=== PATIENT | female | born 1940 | race Caucasian/White ===

== ENCOUNTER → 2016-08-27 | Outpatient (CLI) | payer OTHER ==
--- NOTE | 2016-08-27 08:31 | DX ---
PA and Lateral Chest Clinical Indications: Shortness of breath. R60.0, R09.02. Findings: The lungs are clear, and no masses are found. The heart and pulmonary vessels are normal. There are no pleural effusions and no pneumothorax. Midthoracic vertebral osteophytes are large. No compression fracture. Impression: Normal.
== END ==
LOC: BMCIMAGING 08:05
PROVIDERS: ATTEND Family Medicine Geriatric Medicine
DX: R06.02 Shortness of breath (principal)

== ENCOUNTER → 2016-09-09 | Outpatient (CLI) | payer OTHER ==
--- NOTE | 2016-09-09 08:47 | MR ---
MRI of the Lumbar Spine (Without Contrast) at 0720 hour Clinical Indications: Low back pain (M 54.5). The patient also reports leg weakness. Technique: Sagittal and axial T1 and T2 MR sequences of the lumbar spine without contrast. Axial i maging from lower thoracic spine to the upper sacrum. Findings: Lumbar vertebral bodies are of normal height without compression fractures. Conus medulla ris is relatively low in position and ends at L4. There is subtle lipomatous change of the filum term inale that measures about 2 mm in thickness. There is also mild cystic dilatation of the caudal aspec t of the spinal canal at the level of the distal sacrum on the most inferior margin of the sagittal i mages obtained that is incompletely evaluated. T12-L1: No disk herniation or stenosis. L1-L2: No disk herniation or stenosis. L2-L3: Moderate to marked degenerative disk disease with loss of disk height and Modic type II fatty endplate changes. There is moderate diffuse disk bulge with focal left paracentral disk protrusion th at along with mild ligamentum flavum hypertrophy contributes to moderate to severe left lateral reces s stenosis and mild spinal stenosis. There is bilateral neuroforaminal stenosis mild on the right and moderate on the left secondary to disk bulge and small osteophyte. L3-L4: Moderate to marked degenerative disk disease with desiccation and loss of disk height. There i s Modic type II fatty endplate changes. There is mild diffuse disk bulge with osteophyte with very mi ld compression upon the anterior dural sac without significant spinal stenosis. There is mild to mode rate bilateral neuroforaminal stenosis secondary to posterior lateral osteophyte and facet hypertroph y. L4-L5: Mild desiccation without loss of disk height. There is a posterior central to left paracentral disk protrusion causing mild to moderate compression upon the dural sac with borderline spinal steno sis. There is mild bilateral neuroforaminal stenosis secondary to disk bulge and mild facet hypertrop hy. L5-S1: No disk herniation or stenosis. Impression: 1. The conus is at the L4 level with thickened filum terminale compatible with tethered spinal cord. There is incomplete evaluation of the caudal aspect of the dural sac at the sacrococcygeal junction w ith cystic component on the inferior margin of sagittal images obtained. If indicated, consider addit ional MRI of the sacrum and coccyx for more complete characterization.. 2. Degenerative disk disease most prominent at L2-L3 and L3-L4 with associated left paracentral disk protrusion at the L2-L3 segment as detailed above.
== END ==
LOC: FIMAGING 07:01
PROVIDERS: ATTEND Physical Medicine & Rehabilitation
DX: M51.36 Other intervertebral disc degeneration, lumbar region (principal); M51.26 Other intervertebral disc displacement, lumbar region; G95.89 Other specified diseases of spinal cord

== ENCOUNTER → 2016-10-11 | Outpatient (CLI) | payer OTHER | LOC: FIMAGING 06:50 | PROVIDERS: ATTEND Physical Medicine & Rehabilitation | DX: Q06.8 Other specified congenital malformations of spinal cord (principal); G58.9 Mononeuropathy, unspecified ==

== ENCOUNTER → 2016-12-12 | Outpatient (CLI) | payer OTHER | LOC: FIMAGING 14:09 | PROVIDERS: ATTEND Neurological Surgery | DX: M43.24 Fusion of spine, thoracic region (principal); M25.78 Osteophyte, vertebrae ==

== ENCOUNTER → 2016-12-13 | Outpatient (CLI) | payer OTHER | LOC: FIMAGING 10:06 | PROVIDERS: ATTEND Physical Medicine & Rehabilitation | DX: G91.2 (Idiopathic) normal pressure hydrocephalus (principal) ==

== ENCOUNTER → 2016-12-14 | Outpatient (CLI) | payer OTHER | LOC: FIMAGING 07:02 | PROVIDERS: ATTEND Neurological Surgery | DX: M25.562 Pain in left knee (principal); M23.212 Derangement of anterior horn of medial meniscus due to old tear or injury, left knee; M22.42 Chondromalacia patellae, left knee ==

== ENCOUNTER → 2016-12-15 | Outpatient (CLI) | payer OTHER | LOC: FIMAGING 06:54 | PROVIDERS: ATTEND Neurological Surgery | DX: M48.02 Spinal stenosis, cervical region (principal); M50.922 Unspecified cervical disc disorder at C5-C6 level; M50.91 Cervical disc disorder, unspecified, high cervical region ==

== ENCOUNTER → 2017-06-03 | Outpatient (CLI) | payer OTHER | LOC: FLAB 10:18 | PROVIDERS: ATTEND Physician Assistant Surgical | DX: M51.36 Other intervertebral disc degeneration, lumbar region (principal); M41.86 Other forms of scoliosis, lumbar region; M43.24 Fusion of spine, thoracic region ==

== ENCOUNTER → 2019-01-09 | Outpatient (CLI) | payer OTHER | LOC: FIMAGING 14:30 ==